=== PATIENT | female | born 1955 | race Caucasian/White ===

== ENCOUNTER → 2023-05-23 | Outpatient (CLI) | payer OTHER ==
[~2023-05-23] MED LIST: IOHEXOL-350 50ML VIAL IV ONE
== END | disposition home or self-care (01) ==
LOC: RAH 12:59
PROVIDERS: ATTEND Internal Medicine
DX: R42 Dizziness and giddiness (principal); G31.89 Other specified degenerative diseases of nervous system
CPT/HCPCS: 70470; Q9967

== ENCOUNTER → 2024-07-04 | Outpatient (CLI) | payer OTHER | END | disposition home or self-care (01) | LOC: RAH 15:04 | PROVIDERS: ATTEND Internal Medicine | DX: N32.89 Other specified disorders of bladder (principal); K76.0 Fatty (change of) liver, not elsewhere classified | CPT/HCPCS: 76770 ==